=== PATIENT | female | born 1950 | race American Indian/Alaskan Native ===

== ENCOUNTER 2016-06-12 06:23 | Day surgery (SDC) | payer MEDICARE ==
[2016-06-05 11:30] LABS: Hematocrit 34.5 % (30.3-42.9); Mean Corpuscular HGB Conc 32 % (30-34); Mean Corpuscular Hemoglobin 26 pg (28-32); Mean Corpuscular Volume 83 fl (79-97); Platelet Count 295 K/mm3 (140-440); Red Blood Count 4.17 M/mm3 (3.65-5.03); Red Cell Distribution Width 14.8 % (13.2-15.2); White Blood Count 11.4 K/mm3 (4.5-11.0)
--- NOTE | 2016-06-05 11:40 | Anesthesia Consultation ---
Anesthesia Consult and Med Hx Date of service: 06/12/16 - Airway Anesthetic Teeth Evaluation: Good ROM Head & Neck: Adequate Mental/Hyoid Distance: Adequate Mallampati Class: Class II Intubation Access Assessment: Good - Pulmonary Exam CTA: Yes - Cardiac Exam Cardiac Exam: RRR - Pre-Operative Health Status ASA Pre-Surgery Classification: ASA3 Proposed Anesthetic Plan: General Nerve Block: IS - Pulmonary Hx Smoking: No (SMOKLESS TOBACCO DAILY) Hx Sleep Apnea: No (TING PRE SCREEN HIGH RISK.) - Cardiovascular System Hx Hypertension: Yes (X 20 YRS) - Central Nervous System CVA: Yes (2016 , NO DEFICITS) - Endocrine Hx Hypothyroidism: Yes - Hematic Hx Anemia: Yes - Other Systems Hx Cancer: No
[2016-06-05 11:42] LABS: INR 0.96 (0.87-1.13)
[2016-06-05 11:43] LABS: Partial Thromboplastin Time 29.2 Sec. (24.2-36.6)
[2016-06-05 11:53] LABS: Alanine Aminotransferase 19 units/L (7-56); Albumin 3.8 g/dL (3.9-5); Albumin/Globulin Ratio 1.2 %; Alkaline Phosphatase 123 units/L (35-129); Anion Gap 18 mmol/L; BUN/Creatinine Ratio 33.33; Bilirubin,Total 0.3 mg/dL (0.1-1.2); Blood Urea Nitrogen 20 mg/dL (7-17); Calcium 9.6 mg/dL (8.4-10.2); Carbon Dioxide 23 mmol/L (22-30); Chloride 98.7 mmol/L (98-107); Glucose 270 mg/dL (65-100); Potassium 3.8 mmol/L (3.6-5.0); Sodium 136 mmol/L (137-145); Total Protein 6.9 g/dL (6.3-8.2)
[2016-06-05 12:39] LABS: Blastocytes % (Manual) 0 %
[2016-06-05 12:41] LABS: Diff Status Complete; Platelet Estimate Consistent w Auto
[~2016-06-12 06:23] MED LIST: ANCEF/STERILE WATER 2 GM/20 ML 2 GM/20 ML SYRINGE IV NR; MARCAINE-EPI 0.5%-1:200,000 INFILTRATI ONE; NACL 0.9% 1000 ML 1,000 ML IV SCH; NACL 0.9% IR ONE; NEOSPORIN GU IR ONE; PEPCID PO NR
[2016-06-12] MEDS ORDERED: NACL BACTERIOSTATIC INFILTRATI ONE (07:06)
[2016-06-12] MEDS ORDERED: DIPRIVAN 10 MG/ML IV ONE (07:21)
[2016-06-12] MEDS ORDERED: DILAUDID ONE (07:22)
[2016-06-12] MEDS ORDERED: SUBLIMAZE ONE (08:11)
[2016-06-12] MEDS ORDERED: VERSED ONE (08:13)
[2016-06-12] MEDS ORDERED: ZOFRAN ONE (09:38)
[2016-06-12] MEDS ORDERED: XYLOCAINE MPF 2% ONE (09:38)
[2016-06-12] MEDS ORDERED: QUELICIN ONE (09:39)
[2016-06-12] MEDS ORDERED: NEOSPORIN GU IR ONE (09:39)
[2016-06-12] MEDS ORDERED: NEO SYNEPHRINE/NS Syringe(OR USE) IV ONE (09:39)
[2016-06-12] MEDS ORDERED: NACL 0.9% IR ONE (09:39)
--- NOTE | 2016-06-12 10:00 | Short Stay Summary ---
Short Stay Documentation Date of service: 06/12/16 - History H&P: obtained from office - Allergies and Medications Current Medications: Allergies povidone-iodine [From Betadine] Allergy (Verified 05/27/16 14:31) Swelling lip swelling , itching soap [From Betadine] Allergy (Verified 05/27/16 14:31) Swelling Home Medications Medication Instructions Recorded Confirmed Last Taken Type Apresoline TAB 50 mg PO TID 06/06/16 06/12/16 06/12/16 05:55 History Cetirizine HCl [ZyrTEC] 10 mg PO PRN PRN 06/06/16 06/12/16 06/11/16 History FLUoxetine HCL [PROzac] 40 mg PO QDAY 06/06/16 06/12/16 06/11/16 History Insulin NPH/Regular [NovoLIN 70/30] 25 unit SUB-Q QHS 06/06/16 06/12/16 22:00 History 25 units Insulin NPH/Regular [NovoLIN 70/30] 40 unit SUB-Q QAM 06/06/16 06/12/16 10:00 History 40 units Labetalol [Normodyne] 200 mg PO BID 06/06/16 06/12/16 06/12/16 05:55 History Levothyroxine [Synthroid] 100 mcg PO QAM 06/06/16 06/12/16 06/12/16 05:55 History Losartan [Cozaar] 100 mg PO QDAY 06/06/16 06/12/16 06/12/16 05:55 History Meloxicam [Mobic] 7.5 mg PO PRN PRN 06/06/16 06/12/16 06/05/16 History Metformin HCl [Glucophage] 1,000 mg PO BID 06/06/16 06/12/16 06/11/16 History NIFEdipine [Nifedipine ER] 60 mg PO DAILY 06/06/16 06/12/16 06/12/16 05:55 History Omeprazole Magnesium [PriLOSEC Otc] 40 mg PO QDAY 06/06/16 06/12/16 06/11/16 History Simvastatin [Zocor TAB] 20 mg PO QHS 06/06/16 06/12/16 06/12/16 05:55 History glipiZIDE [Glucotrol] 10 mg PO BID 06/06/16 06/12/16 06/11/16 History Active Medications Famotidine (Pepcid) 20 mg PO PREOP NR Stop: 06/12/16 23:00 Last Admin: 06/12/16 07:24 Dose: 20 mg Sodium Chloride (Nacl 0.9% 1000 Ml) 1,000 mls @ 100 mls/hr IV DIRECT VINCENT Stop: 06/12/16 23:01 Last Admin: 06/12/16 07:25 Dose: 100 mls/hr Cefazolin Sodium (Ancef/Sterile Water 2 Gm/20 Ml) 2 gm in 20 mls @ 80 mls/hr IV PREOP NR PRN Reason: Protocol Stop: 06/12/16 23:59 Insulin Human Regular (Novolin R) 4 units IV ONCE NR Stop: 06/12/16 12:00 Last Admin: 06/12/16 08:14 Dose: 4 units - Brief post op/procedure progress note Date of procedure: 06/12/16 Pre-op diagnosis: Left rotator cuff tear and inpingment syndrome Post-op diagnosis: same Procedure: Acromioplasty and rotator cuff repair Anesthesia: GETA Surgeon: JONATHAN DELACRUZ Estimated blood loss: none Pathology: none Specimen disposition: discarded Condition: stable - Disposition Disposition: DISCHARGED TO HOME OR SELFCARE - Discharge Diagnoses (1) Rotator cuff impingement syndrome of left shoulder Status: Resolved (2) Complete rotator cuff tear of left shoulder Status: Resolved Short Stay Discharge Plan Follow up with: THONG LEMOS MD [Primary Care Provider] - 7 Days
--- NOTE | 2016-06-12 12:09 | Post Anesthesia Evaluation ---
- Post Anesthesia Evaluation Patient Participated: Yes Airway Patent: Yes Stable Respiratory Function: Yes Nausea/Vomiting: No Temp > 96.8F: Yes Pain Manageable: Yes Adequeate Hydration: Yes Anesthesia Complications: No Block Receding Appropriately: Yes Patient on Ventilator: No
--- NOTE | 2016-06-12 12:09 | Anesthesia Day of Surgery ---
Anesthesia Day of Surgery - Day of Surgery Patient Examined: Yes Patient H&P Reviewed: Yes Patient is NPO: Yes Beta Blockers: Yes
[2016-06-12 12:40] VITALS: BP 164/71
--- NOTE | 2016-06-13 18:31 | Operative Report ---
PREOPERATIVE DIAGNOSIS: Rotator cuff tear, left shoulder. POSTOPERATIVE DIAGNOSIS: Rotator cuff tear, left shoulder. PROCEDURES: Rotator cuff repair and acromioplasty. SURGEON: Chepe Manning MD AGGREGATE CONVEYOR OPERATOR: Aura Rubio RN ANESTHESIA: General. COMPLICATIONS: None. FINDINGS: The patient had a 0.5 cm tear of the supraspinatus tendon and a large enlarged acromion. COMPONENTS USED: [place] ReelX anchor. PROCEDURE IN DETAIL: Once the patient was in surgical room, a time-out was carried out to identify the patient and procedure. The patient was prepped and draped in the usual position. The procedure was carried out by putting the patient in a semi-seated position and an incision about an inch in length was carried out in line with the acromion. Dissection was carried out through the subcutaneous tissues. Dissection was carried out to allow full split of the deltoid muscle. The deltoid muscle was then split between the junction between the medial and lateral deltoid to allow for exposure of the acromion. An elevator was placed on the knee and the acromioplasty was then carried out by dissection of the spur by both vertical and transverse cuts. Once this was done, about 8 to 9 mm of the undersurface of the acromion were removed. The wound was irrigated extensively at this point. The bursectomy of the shoulder was then carried out with Freedman scissors removing large amount of enlarged bursa over the superior, anterior, and posterior aspects of the shoulder. The rotator cuff was ____. At this point using the Mary instrumentation, a FiberTape suture was then placed around the area of the tear. Once the suture was in place and the suture was stable, the patient's suture was fixed to the humerus and to decortication using ReelX anchor. Once the anchor was locked in place, the shoulder was thought to be secured. The procedure was then terminated. The wound bed was irrigated. The deltoid muscle was reconstructed using #1 3-0 Ethibond suture, the subcutaneous tissues were closed with 2-0 Vicryl, the skin closed with skin kaelyn. A compression band was applied. The patient tolerated the procedure well. There were no complications. JOB# [id number] ANTONIA/SHAISTA
== END 2016-06-12 12:45 | disposition home or self-care (01) ==
LOC: OR 06:23
DX: S46.012A Strain of muscle(s) and tendon(s) of the rotator cuff of left shoulder, initial encounter (principal); M47.892 Other spondylosis, cervical region; K21.9 Gastro-esophageal reflux disease without esophagitis; E11.9 Type 2 diabetes mellitus without complications; I10 Essential (primary) hypertension; D64.9 Anemia, unspecified; E03.9 Hypothyroidism, unspecified; F32.9 Major depressive disorder, single episode, unspecified; Z72.89 Other problems related to lifestyle; Z86.73 Personal history of transient ischemic attack (TIA), and cerebral infarction without residual deficits; Z83.3 Family history of diabetes mellitus; Z87.891 Personal history of nicotine dependence; Z82.49 Family history of ischemic heart disease and other diseases of the circulatory system; Z82.3 Family history of stroke; Z79.01 Long term (current) use of anticoagulants
CPT/HCPCS: 23130; 23410; 36415; 80053; 82962; 85007; 85025; 85610; 85730; J0330; J0690; J1170; J2250; J2370; J2405; J2704; J3010; J7030; C1713; J1815